=== PATIENT | female | born 1970 | race African-American/Black ===

== ENCOUNTER 2017-08-14 17:55 | Inpatient (IN) ==
[2017-08-14] MEDS ORDERED: ASPIRIN PO STA (18:07)
[2017-08-14 18:20] LABS: MANUAL DIFF NEEDED? NO
[2017-08-14 18:25] LABS: BASO% 0.9 % (0.0-0.8); EOS% 3.8 % (0.0-10.0); HEMATOCRIT 29.9 % (37.0-47.0); HEMOGLOBIN 8.9 g/dL (12.0-16.0); IMM GRAN# 0.02 X1000 (0.0-0.04); IMM GRAN% 0.4 % (0.0-0.5); LYMPH# 1.45 X1000 (1.2-3.4); LYMPH% 27.5 % (20.5-51.1); MCH 24.2 PG (27-31); MCHC 29.8 g/dL (33-37); MCV 81.3 FL (81-99); MONO# 0.33 X1000 (0.11-0.59); MONO% 6.3 % (1.7-9.3); MPV 10.2 FL (7.4-10.4); NEUT% 61.1 % (42.2-75.2); PLT 317 X1000 (130-400); RBC 3.68 XMIL (4.2-5.4)
--- NOTE | 2017-08-14 18:29 | Diag Imaging Result Doc PS360 ---
CHEST-2 VIEWS - 08/14/2017 INDICATION: CP TECHNIQUE: COMPARISON: 09/29/2016 FINDINGS: Lungs are much better expanded. No focal infiltrates, pneumothorax, or pleural effusion. Heart size is moderately enlarged. Pulmonary vascularity is grossly normal. IMPRESSION: Nonspecific cardiomegaly. Electronically signed by Gulshan Mao 08/14/2017 6:27 PM
[2017-08-14 18:37] LABS: INR 0.98; PROTIME 10.3 Seconds (9.2-11.7); PTT 26.4 Seconds (22.0-36.0)
[2017-08-14 18:45] LABS: AGAP 12; ALBUMIN 4.3 g/dL (3.5-5.0); ALKALINE PHOSPHATASE 77 U/L (32-104); BUN 12 mg/dL (8-22); CALCIUM 8.8 mg/dL (8.8-10.2); CHLORIDE 103 mmol/L (98-107); COSMO 277; GOT 14 U/L (10-30); GPT 9 U/L (10-36); MAGNESIUM 2.1 mg/dL (1.5-2.7); SODIUM 139 mmol/L (136-145); TCO2 24 mmol/L (25-35); TOTAL BILIRUBIN 0.36 mg/dL (0.20-1.00); TOTAL PROTEIN 7.9 g/dL (6.3-8.3)
[2017-08-14 18:47] LABS: CK PROFILE 181 U/L (24-173)
[2017-08-14 19:23] LABS: CK-MB 3.57 ng/mL (0.0-5.0)
--- NOTE | 2017-08-14 20:18 | Diag Imaging Result Doc PS360 ---
CT ANGIOGRAM/PULMONARY ARTERIES - 08/14/2017 INDICATION: CHEST PAIN, ELEVATED DDIMER TECHNIQUE: Axial CT images were obtained after administering intravenous contrast. Coronal MIP images were generated. A CT dose reduction protocol was used. COMPARISON: 09/21/2016 FINDINGS: There are a couple of acute appearing pulmonary emboli in right upper and lower lobe segmental arteries. Heart size is normal. Stable COPD changes. No adenopathy. The lungs are clear. Stable thyroid goiter. Upper abdominal images are unremarkable. IMPRESSION: Acute pulmonary emboli in segmental arteries on the right side. A report was immediately called to the patient's provider in the emergency room. Electronically signed by Gulshan Mao 08/14/2017 8:16 PM
[2017-08-14] MEDS: HEPARIN IV ONE ×2 (20:36→21:33)
--- NOTE | 2017-08-14 20:47 | PROVIDER DOCUMENTATION ---
HPI-Chest Pain - General Chief Complaint: Chest Pain Stated Complaint: CP Time Seen by Provider: 08/14/17 19:29 Source: patient Allergies/Adverse Reactions: Patient Allergies Allergy/AdvReac Type Severity Reaction Status Date / Time ciprofloxacin [From Cipro] Allergy Mild ITCHING Verified 08/14/17 20:00 ciprofloxacin HCl * Allergy Mild ITCHING Verified 08/14/17 20:00 [From Cipro] levofloxacin [From Levaquin] Allergy RASH Verified 08/14/17 20:00 Home Medications: Home Medication List Medication Instructions Recorded Confirmed Last Taken Type NK [No Home Medications] 03/19/17 08/14/17 Unknown History - History of Present Illness-CP Nature of Presenting Problem: Pt is a 47 y/o AA female c chief complaint of chest pain and shortness of breath x 3 days. pt states that she normally walks home from work but has been unable to do so for the past 3 days. Today, pt developed chest pain while attempting to walk. In September 2016, pt was dx c bilateral pulmonary emboli. She was admitted as an in-pt in this hospital and then discharged on anti- coagulant. Pt denies any known coagulation disorder. Pt states that she has discontinued taking any anti-coagulants. On arrival at the ER, pt is in minimal distress and is free of chest pain. Review of Systems - Adult - REVIEW OF SYSTEMS - ADULT Constitutional: reports: no symptoms reported. denies: chills, fatique Eyes: reports: no symptoms reported. denies: blurred vision, double vision Ears, Nose, Mouth & Throat: reports: no symptoms reported. denies: ear pain, nose pain, throat pain Cardiovascular: reports: no symptoms reported, chest pain. denies: orthopnea Respiratory: reports: see HPI, shortness of breath. denies: hemoptysis, pleurisy, wheezing Gastrointestinal: reports: no symptoms reported. denies: abdominal pain, nausea Genitourinary: reports: no symptoms reported. denies: dysuria, frequent UTI's Musculoskeletal: reports: no symptoms reported. denies: joint pain, joint swelling Integumentary: reports: no symptoms reported. denies: hives, itching Neurological: reports: no symptoms reported. denies: numbness, paresthesia Psychiatric: reports: no symptoms reported. denies: anxiety, emotional problems Endocrine: reports: no symptoms reported. denies: cold intolerance, heat intolerance Hematologic/Lymphatic: reports: no symptoms reported. denies: blood clots, low blood count Allergic/Immunologic: reports: no symptoms reported. denies: allergic reactions , food allergy All Other Systems: Reviewed and Negative Past History - Adult - PAST MEDICAL HISTORY-ADULT Review of Records: reports: Old Records Reviewed, Nursing Assessment Review, Medications Reviewed, Social history reviewed & non-contributory. Major Childhood Illnesses: reports: denies history Cardiovascular: reports: blood clots (bilat PEs in Sep 2016), other (dependent edema) Respiratory: reports: asthma Gastrointestinal: reports: denies history Obstetrical/Gynecological: reports: denies history Genitourinary: reports: denies history Musculoskeletal: reports: denies history Neurological: reports: denies history Endocrine/Immune: reports: Diabetes Other Conditions: reports: denies history - PRIOR SURGERIES/PROCEDURES Surgical/Procedure History: reports: - PRIOR HOSPITALIZATIONS Prior Hospitalizations: reports: for other non-related - IMMUNIZATION STATUS Childhood Immunizations: See Nurse Assessment Flu Vaccine: See Nurse Assessment - FAMILY HISTORY Family History: other (CHF-father) - SOCIAL HISTORY Smoking: denies Substance Use: none/never Alcohol Use Frequency: never Living Situation: family Physical Exam-General - PHYSICAL EXAM-ADULT Initial Vital Signs Reviewed: Yes - CONSTITUTIONAL General Appearance: alert, no apparent distress - EYES Eyes: PERRL/EOMI, pink conjunctivae - HEAD, EARS, NOSE, MOUTH & THROAT HENMT: normocephalic/atraumatic, moist mucous membranes, normal ENT inspection - NECK Neck: normal inspection - RESPIRATORY Respiratory: chest non-tender, lungs clear, normal breath sounds - CARDIOVASCULAR Cardiovascular: normal peripheral pulses, regular rate, rhythm - GASTROINTESTINAL (ABDOMEN) Abdominal Exam: normal bowel sounds, non tender, soft - LYMPHATIC Lymphatic: no adenopathy - MUSCULOSKELETAL Back Exam: normal inspection, no CVA tenderness, no vertebral tenderness Extremity: normal range of motion, non-tender, normal inspection - SKIN Integumentary: normal color, normal turgor, warm/dry - NEUROLOGIC Neurologic: grossly normal, no motor/sensory deficits - PSYCHIATRIC Psych/Mental Status: normal mood/affect, normal thought content, normal thought process, oriented x 3 Progress - PLAN OF CARE/RESULTS Progress/Plan/Lab Results: Vital Signs - 8 hr 08/14/17 17:59 Temperature 98.5 F Pulse Rate 88 Respiratory Rate 18 Blood Pressure 137/78 O2 Sat by Pulse Oximetry 100 Laboratory Results - last 24 hr 08/14/17 08/14/17 08/14/17 18:09 18:09 18:09 WBC 5.27 RBC 3.68 L Hgb 8.9 L Hct 29.9 L MCV 81.3 MCH 24.2 L MCHC 29.8 L RDW Std Deviation 17.0 H Plt Count 317 MPV 10.2 Immature Gran % (Auto) 0.4 Neut % (Auto) 61.1 Lymph % (Auto) 27.5 Curry % (Auto) 6.3 Eos % (Auto) 3.8 Baso % (Auto) 0.9 H Immature Gran # (Auto) 0.02 Neut # (Auto) 3.22 Lymph # (Auto) 1.45 Curry # (Auto) 0.33 Eos # (Auto) 0.20 Baso # (Auto) 0.05 PT INR PTT (Actin FS) D-Dimer 2.72 H Sodium 139 Potassium 4.0 Chloride 103 Carbon Dioxide 24 L Anion Gap 12 BUN 12 Creatinine 0.7 Estimated GFR/1.73 m2 > 60 BUN/Creatinine Ratio 17 Glucose 88 Calculated Osmolality 277 Calcium 8.8 Magnesium 2.1 Total Bilirubin 0.36 AST 14 ALT 9 L Alkaline Phosphatase 77 Creatine Kinase 181 H Creatine Kinase Index 2.0 CK-MB (CK-2) 3.57 Troponin T Rhe-[id number]-Udktytjotjc Pept Total Protein 7.9 Albumin 4.3 Globulin 3.6 Albumin/Globulin Ratio 1.2 Serum , Qual 08/14/17 08/14/17 08/14/17 18:09 18:09 18:09 WBC RBC Hgb Hct MCV MCH MCHC RDW Std Deviation Plt Count MPV Immature Gran % (Auto) Neut % (Auto) Lymph % (Auto) Curry % (Auto) Eos % (Auto) Baso % (Auto) Immature Gran # (Auto) Neut # (Auto) Lymph # (Auto) Curry # (Auto) Eos # (Auto) Baso # (Auto) PT 10.3 INR 0.98 PTT (Actin FS) 26.4 D-Dimer Sodium Potassium Chloride Carbon Dioxide Anion Gap BUN Creatinine Estimated GFR/1.73 m2 BUN/Creatinine Ratio Glucose Calculated Osmolality Calcium Magnesium Total Bilirubin AST ALT Alkaline Phosphatase Creatine Kinase Creatine Kinase Index CK-MB (CK-2) Troponin T < 0.010 [id number]-P-Jxdzqkpqrjx Pept 304 H Total Protein Albumin Globulin Albumin/Globulin Ratio Serum , Qual 08/14/17 18:09 WBC RBC Hgb Hct MCV MCH MCHC RDW Std Deviation Plt Count MPV Immature Gran % (Auto) Neut % (Auto) Lymph % (Auto) Curry % (Auto) Eos % (Auto) Baso % (Auto) Immature Gran # (Auto) Neut # (Auto) Lymph # (Auto) Curry # (Auto) Eos # (Auto) Baso # (Auto) PT INR PTT (Actin FS) D-Dimer Sodium Potassium Chloride Carbon Dioxide Anion Gap BUN Creatinine Estimated GFR/1.73 m2 BUN/Creatinine Ratio Glucose Calculated Osmolality Calcium Magnesium Total Bilirubin AST ALT Alkaline Phosphatase Creatine Kinase Creatine Kinase Index CK-MB (CK-2) Troponin T Ddp-[id number]-Rilbhrlhxzg Pept Total Protein Albumin Globulin Albumin/Globulin Ratio Serum , Qual NEGATIVE Orders Category Date Time Status CHEST-2 VIEWS [RAD] Stat Exams 08/14/17 18:[address] ANGIOGRM/PULMONARY ARTERIES [CT] Stat Exams 08/14/17 19:29 Completed JOHN W/REFLEX [HH] Stat Lab 08/14/17 21:20 Received CBC WITH ELECTRONIC DIFF [HEME] Stat Lab 08/14/17 18:09 Completed CK PROFILE [SP CHEM] Stat Lab 08/14/17 18:09 Completed COMPREHENSIVE METABOLIC PANEL [CHEM] Stat Lab 08/14/17 18:09 Completed D-DIMER [CHEM] Stat Lab 08/14/17 18:09 Completed FACTOR V [id number] LEIDEN [CLANTON] Stat Lab 08/14/17 21:20 Received MAGNESIUM [CHEM] Stat Lab 08/14/17 18:09 Completed TEST-SERUM [PREG] Stat Lab 08/14/17 18:09 Completed PRO B-NATRIURETIC PEPTIDE Stat Lab 08/14/17 18:09 Completed PROTEIN C ACTIVITY [HH] Stat Lab 08/14/17 21:20 Received PROTEIN S ACTIVITY [HH] Stat Lab 08/14/17 21:20 Received PROTIME WITH INR [COAG] Stat Lab 08/14/17 18:09 Completed PT [id number] GENE MUTATION [CLANTON] Stat Lab 08/14/17 21:20 Received PTT [COAG] Stat Lab 08/14/17 18:09 Completed TROPONIN T Stat Lab 08/14/17 18:09 Completed Aspirin Med 08/14/17 18:07 Discontinued 325 mg PO STAT STA Fondaparinux [Arixtra] Med 08/14/17 21:00 Discontinued 10 mg SUBQ Q24H Fondaparinux [Arixtra] Med 08/14/17 21:30 Active 10 mg SUBQ Q24H Heparin Med 08/14/17 20:24 Discontinued 9,600 unit IV NOW ONE EKG [EKG] Stat Ther 08/14/17 18:07 Ordered Transfer/Admit Order [TRANSFER] Routine Transfer 08/14/17 21:19 Ordered Result Diagrams: 08/14/17 18:09 08/14/17 18:09 - REASSESSMENT Reassessment #1 Time Reassessed: 20:46 (Discussed c Dr. Saldana (ER MD) who reviewed labs and imaging studies. He also recommended a number of coag studies to evaluate a possible coagulopathy. ) - CONSULTS/PCP/HOSPITALIST Notification #1 *Consult/PCP/Hospitalist*: Dr. Cheung (Hospitalist) Time Discussed: 20:46 (Will accept pt and see pt in the ER and write orders. ) Departure - Departure Date of Disposition Decision: 08/14/17 Time of Disposition Decision: 20:47 DIAGNOSIS: Pulmonary embolism Qualifiers: Pulmonary embolism type: other Chronicity: unspecified Acute cor pulmonale presence: without acute cor pulmonale Qualified Code(s): I26.99 - Other pulmonary embolism without acute cor pulmonale Disposition: ADMITTED INPATIENT 09 Certified Medical Emergency: Emergent Condition: Stable - Critical Care Note This patient required my direct & personal management of CC.: No Attestation - Physician/ DARA Attestation Patient care was provided by Advanced Practice Provider:: Yes Advanced Practice Provider:: Kartik Jordan Advanced Practice Provider documentation review:: The Mid-level provider documentation, treatment plan and medical decision making was reviewed by the physician who agrees with all treatment and medical decision making by the MLP. The physician spent face to face time with patient:: No Advanced Practice Provider documentation review:: Supervising physician onsite and consulted in the evaluation and care of this patient. The physician did not have a face to face encounter with the patient.
[2017-08-14] MEDS ORDERED: ARIXTRA SUBQ SCH ×2 (21:00→21:30)
[2017-08-15] MEDS ORDERED: ZOFRAN IV PRN (01:06)
[2017-08-15] MEDS ORDERED: MORPHINE IV PRN (01:06)
[2017-08-15] MEDS: NS 1,000 ML IV SCH ×2 (01:56→15:20)
[2017-08-15] MEDS: RESTORIL PO PRN ×2 (02:32→20:31)
--- NOTE | 2017-08-15 05:14 | EKG Report ---
Test Performed on : 08/14/2017 6:04:09 PM Test Reason : Chest Pain Blood Pressure : / mmHG Vent. Rate : 089 BPM Atrial Rate : 089 BPM P-R Int : 166 ms QRS Dur : 076 ms QT Int : 390 ms P-R-T Axes : 046 016 012 degrees QTc Int : 474 ms Normal sinus rhythm. Normal ECG When compared with ECG of 30-JUL-2015 18:22, Nonspecific T wave abnormality no longer evident in Anterior leads Unconfirmed Result
[2017-08-15 06:14] LABS: MANUAL DIFF NEEDED? NO
[2017-08-15 06:27] LABS: EOS# 0.18 X1000 (0.0-0.7); EOS% 4.4 % (0.0-10.0); HEMOGLOBIN 7.5 g/dL (12.0-16.0); IMM GRAN# 0.01 X1000 (0.0-0.04); IMM GRAN% 0.2 % (0.0-0.5); LYMPH# 1.33 X1000 (1.2-3.4); LYMPH% 32.3 % (20.5-51.1); MCH 23.7 PG (27-31); MCHC 28.8 g/dL (33-37); MONO# 0.32 X1000 (0.11-0.59); MONO% 7.8 % (1.7-9.3); MPV 10.7 FL (7.4-10.4); NEUT% 54.3 % (42.2-75.2); PLT 269 X1000 (130-400); RBC 3.17 XMIL (4.2-5.4)
[2017-08-15 07:04] LABS: IRON SATURATION 8 %; TIBC 296 ug/dL; TOTAL IRON 23 ug/dL (49-151); UNBOUND IRON 273 ug/dL (112-346)
[2017-08-15 07:06] LABS: AGAP 10; BUN 9 mg/dL (8-22); CALCIUM 8.2 mg/dL (8.8-10.2); CHLORIDE 106 mmol/L (98-107); COSMO 276; POTASSIUM 3.4 mmol/L (3.5-5.1); SODIUM 139 mmol/L (136-145); TCO2 23 mmol/L (25-35)
--- NOTE | 2017-08-15 08:47 | EKG Report ---
Test Performed on : 08/15/2017 08:31:39 AM Test Reason : chest pain Blood Pressure : / mmHG Vent. Rate : 080 BPM Atrial Rate : 080 BPM P-R Int : 186 ms QRS Dur : 080 ms QT Int : 418 ms P-R-T Axes : 047 017 017 degrees QTc Int : 482 ms Normal sinus rhythm. Prolonged QT Abnormal ECG When compared with ECG of 14-AUG-2017 18:04, No significant change was found Confirmed by Steve Faria MD ([id number]) on 09/14/2017 6:31:08 PM
[2017-08-15] MEDS: ELIQUIS PO SCH ×2 (09:06→20:31)
[2017-08-15 09:48] LABS: HEMOGLOBIN A1C 4.9 % (4.8-6.0)
[2017-08-15 11:27] LABS: FERRITIN 6 ng/mL (13-150)
--- NOTE | 2017-08-15 15:45 | HISTORY AND PHYSICAL ---
PRIMARY CARE PROVIDER: None CHIEF COMPLAINT: Shortness of breath and chest pain. HISTORY OF PRESENT ILLNESS: Ms. Alvarenga is a 47-year-old female with a past medical history of pulmonary embolism and DVT who came into the ER today after having a couple of days of chest pain and shortness of breath primarily when she walks. Ms. Alvarenga walks to her place of employment. She stated that it became harder and harder to breathe and she started having dizziness today associated with it. The chest pain was midsternal it was mostly with inspiration and expiration. She denied cough, fever, chills, nausea, vomiting, diarrhea, hematochezia, hematemesis, hemoptysis or melena or any type of dysuria. She came into the emergency room where laboratory data was obtained. Her D-dimer was elevated so a CTA was taken which showed multiple small pulmonary embolisms. The patient's BMI is 41.5 so she will be treated with Arixtra 10 mg subcu q.24 hours and will begin bridging to Coumadin tomorrow morning or the next day. The patient was noncompliant with her anticoagulations on her last discharge, I did stress to the patient the need to keep taking her medication. The patient will be admitted to the medical floor inpatient where she will stay likely for 48 hours. PAST MEDICAL HISTORY: 1. Asthma. 2. Borderline diabetes mellitus with no home treatment. 3. DVT/pulmonary embolism poorly compliant with anticoagulations. PREVIOUS SURGICAL HISTORY: . FAMILY HISTORY: CHF in her father, she had an aunt with multiple clots. SOCIAL HISTORY: Lives with her family, works at [employer], denies any tobacco, alcohol or illicit drug use or abuse. ALLERGIES: Cipro and Levaquin. HOME MEDICATIONS: None. REVIEW OF SYSTEMS: Fourteen point review of systems conducted with the patient. Pertinent positives listed above in the HPI. All other systems reviewed and found to be negative. PHYSICAL EXAMINATION: VITAL SIGNS: Temperature 98.5 degrees, pulse 88, respirations 18, blood pressure 137/78, oxygen saturation 100% on room air. GENERAL: Very pleasant 47-year-old female lying in the ER stretcher in no acute distress alert and oriented x3. HEENT: Head is atraumatic, normocephalic. Pupils equal, round, reactive to light. Extraocular eye movement intact. Sclerae is anicteric. Conjunctivae is mildly pale. Oral mucosa is moist. NECK: Supple. No JVD. No thyromegaly. Trachea is midline. No cervical lymphadenopathy. CARDIAC: S1-S2 appreciated. No murmurs, gallops, rubs. LUNGS: Clear to auscultation bilaterally. No rhonchi, wheezes, rales. ABDOMEN: Protuberant, soft, nondistended, nontender, bowel sounds present in all 4 quadrants. Normoactive. No pulsatile mass. No organomegaly. EXTREMITIES: No clubbing or cyanosis. 1+ nonpitting edema bilateral lower extremities midshin to foot, some fluid pocketing noted around bilateral ankles. Denies any calf tenderness on assessment. NEUROLOGIC: Alert and orient x3. Cranial nerves 2-12 grossly intact. DIAGNOSTIC DATA: CTA of chest. Acute pulmonary emboli in the segmental arteries on the right side, chronic COPD changes which was an incident normal on but the patient does have a history of asthma. LABORATORY DATA: WBC 5.27, hemoglobin 8.9, hematocrit 29.9, platelet count 317,000, coags within normal limits. D-dimer 2.72, sodium 139, potassium 4, chloride 103, carbon dioxide 24, BUN 12, creatinine 0.7, glucose 88, CK 181, troponin less than 0.010, proBNP 304. ASSESSMENT PLAN: 1. Acute pulmonary embolism. Will start patient on Arixtra, will draw clotting factors. Patient will begin bridging to Coumadin for discharge home within the next couple of days. 2. Questionable diabetes mellitus type 2. Patient appears to have taken time metformin in the past. She no longer takes any type of medication. Will check hemoglobin A1c and restart medications if necessary. 3. Asthma with chronic obstructive pulmonary disease changes noted on the CT scan aware. Will add albuterol to the patient's profile if needed. 4. Anemia. Check iron indices. Further recommendations per patient clinical course. Dictated by BAN Carrillo for Skye Alford MD cc: BAN Carrillo MD
[2017-08-15 15:49] LABS: HEMATOCRIT 27.3 % (37.0-47.0); HEMOGLOBIN 8.1 g/dL (12.0-16.0); MCH 24.3 PG (27-31); MCHC 29.7 g/dL (33-37); MCV 81.7 FL (81-99); MPV 10.6 FL (7.4-10.4); RBC 3.34 XMIL (4.2-5.4)
--- NOTE | 2017-08-15 17:55 | HISTORY AND PHYSICAL ---
PLEASE DELETE MTDD
--- NOTE | 2017-08-15 18:19 | HISTORY AND PHYSICAL ---
CHIEF COMPLAINT: Shortness of breath. HISTORY OF PRESENT ILLNESS: This is a 47-year-old female who presented to the emergency room complaining of shortness of breath and chest pain. She was found to have an elevated D-dimer and subsequent pulmonary arteriogram revealed acute pulmonary emboli in segmental arteries on the right side for which she was given heparin. Coag workup was drawn and she was admitted for further evaluation. She was found to have a hemoglobin of 8.9 and hematocrit of 29.9. She does have known fibroids and has previously been evaluated by Dr. Cuevas for these. She was admitted in September 2016. At that time, she was found to have a DVT as well as a pulmonary embolus. She was started on Eliquis. She was discharged with prescriptions for Eliquis with a 30 day free card, and she did call and did qualify for free Eliquis. She stated that she did fill the month, the 30 days free, although she did not follow up and get any more refills on Eliquis. PAST MEDICAL HISTORY: Pulmonary embolus. Asthma. Diabetes type 2. Uterine fibroids. Deep venous thrombosis. Anemia secondary to fibroids. PAST SURGICAL HISTORY: . FAMILY HISTORY: Her father had congestive heart failure. SOCIAL HISTORY: She denies alcohol, tobacco, or illicit drug use. ALLERGIES: Cipro which causes itching, Levaquin which causes a rash. HOME MEDICATIONS: None. REVIEW OF SYSTEMS: A 14 point review of systems is discussed with the patient with pertinent positives being shortness of breath, chest pain. She denied palpitations, dizziness, syncope, PND, orthopnea, any cough, fever, chills, any nausea, vomiting, diarrhea, constipation, black or bloody vomitus, black or bloody stools, hematuria dysuria, frequency, urgency. PHYSICAL EXAMINATION: GENERAL: This is a very pleasant 47-year-old female, who is sitting on the bedside in no distress. VITAL SIGNS: Blood pressure is 135/78, with a heart rate of 78, respirations are 18, temperature is 98.9 degrees oral with room air saturations of 100%. HEENT: Head is normocephalic, atraumatic. Pupils equal, round, react to light. EOMs are intact. Sclerae anicteric. Mucous membranes are moist. NECK: Supple with trachea midline. CARDIOVASCULAR: Regular rate and rhythm. S1 and S2 appreciated. PULMONARY: Breath sounds are clear with no increased work of breathing noted. Chest does rise and fall symmetrically with respiration. GASTROINTESTINAL: Abdomen is soft, nontender, nondistended with bowel sounds in all 4 quadrants. BACK: No CVAT. No spine tenderness. MUSCULOSKELETAL: Good range of motion of joints. EXTREMITIES: No clubbing, cyanosis, or edema. Calves are nontender. Pulses are palpable x4. NEUROLOGIC: She is alert and oriented x3. Cranial nerves 2-12 grossly intact. DIAGNOSTICS: WBC is 5.2, with a hemoglobin of 8.9, hematocrit 29.9, and platelets of 317,000. Repeat labs the morning of the 4th: WBC is 4.1, with a hemoglobin of 7.5, hematocrit 26, and platelets of 269,000. D-dimer is 2.72. Sodium is 139, potassium 4, BUN 12, creatinine 0.7, glucose of 88. Cardiac enzymes are negative. Serum is negative. JOHN is negative. CTA pulmonary reveals a right-sided pulmonary embolus. Chest x-ray revealed nonspecific cardiomegaly. ASSESSMENT AND PLAN: 1. Right-sided pulmonary embolus. 2. Known left lower extremity deep venous thrombosis. 3. Diabetes mellitus. 4. Known urine fibroids. 5. Anemia secondary to uterine fibroids. PLAN: She was admitted to the hospital. We will continue telemetry. We will restart Eliquis 5 mg b.i.d. The patient has been given the 30 day free prescription. She did call and she was approved to have free Eliquis. We did have a long discussion on the importance of taking this medication. She did voice understanding. CBC this morning: She was 8.9 and 29.9 hemoglobin and hematocrit on admission. This morning she was 7.5 and 26. She does have a history of uterine fibroids with heavy periods. We will repeat her hemoglobin and hematocrit this afternoon and further care will be directed according to results. Further treatments pending hospital course. Dictated by BAN White for Kolby Santamaria MD cc: BAN White MD
--- NOTE | 2017-08-15 19:27 | PROGRESS NOTE ---
DATE: 08/15/2017 Patient seen and examined. Full note dictated by nurse practitioner. Ms. Alvarenga notes that she was in the hospital recently for pulmonary embolus. She was placed on Eliquis, which she tolerated very well. She got a 1 month prescription and then after much discussion, it appears though she did not fill any further prescriptions, did not follow up anywhere, did not come back to the ER. States she just simply felt one month was enough and did not get her refills. She states that over the past couple of days, she has had increased shortness of breath, chest pain, increased palpitations, increased dyspnea on exertion. PHYSICAL: General: She is awake, alert, oriented. She is in mild respiratory distress. Lungs: Are clear. CV: Regular rate. ASSESSMENT: Patient will be admitted to the hospital. Placed on Lovenox. Restart her Eliquis. consulting services project manager will be consulted to ensure that Eliquis is affordable. Again, discussed with Ms. Alvarenga, the perils of not taking Eliquis, i.e. . Discussed with her the risks of Eliquis, bleeding, potential bleeding, etc. cc: Kolby Santamaria MD
[2017-08-16] MEDS ORDERED: ARIXTRA SUBQ SCH (01:00)
[2017-08-16] MEDS: NS 1,000 ML IV SCH (06:16)
[2017-08-16] MEDS: ELIQUIS PO SCH (08:24)
--- NOTE | 2017-08-16 14:33 | Extremity Venous Study ---
EXAM: Venous U/S Bilateral Legs - 08/15/2017 HISTORY: dvt TECHNIQUE: Bilateral lower extremity Doppler venous ultrasound COMPARISON: 09/20/2016 FINDINGS: The deep veins of the bilateral lower extremities demonstrate flow and compressibility. There are no filling defects identified. IMPRESSION: No evidence of deep venous thrombosis in either lower extremity. Electronically signed by Johann Becerra 08/16/2017 2:31 PM
[2017-08-16 16:40] VITALS: BP 151/85
--- NOTE | 2017-08-17 05:04 | PROGRESS NOTE ---
DATE: 08/16/2017 ADDENDUM REPORT: Patient seen and examined by myself. Full note dictated by nurse practitioner. Patient was admitted to the hospital secondary to pulmonary emboli and what unfortunately appears to be medical noncompliance. It appears that she took 1 month only of Eliquis the last time she was admitted and never went to get any refills. Discussed with patient the perils of not treating her blood clot to include shortness of breath, dyspnea on exertion and ultimately . Discussed with patient that she absolutely needs to follow up with primary care of her choice but she needs to treat her blood clot with medication. cc: Kolby Santamaria MD
--- NOTE | 2017-08-17 16:24 | DISCHARGE SUMMARY ---
ADMISSION DATE: 08/14/2017 DISCHARGE DATE: 08/16/2017 DIAGNOSES: 1. Pulmonary embolus acute. 2. Diabetes mellitus. 3. Known uterine fibroids. 4. Anemia secondary to uterine fibroids. 5. Noncompliance with medications and MD followup. DIAGNOSTICS: 08/14/2017 pulmonary arteriogram revealed acute pulmonary emboli on the right. Bilateral lower extremity Doppler revealed no evidence of DVT in either extremity. HOSPITAL COURSE: Ms. Alvarenga presented to the emergency room complaining of shortness of breath that was consistent with her prior PE. CTA pulmonary revealed a right acute pulmonary embolus for which she was given heparin bolus in the emergency room. She was then started on Eliquis 5 mg b.i.d. She has had no further chest pain or shortness of breath. Her electrolytes were trended and repleted as appropriate. The patient was given an assistance card for Eliquis. She did call and register for 30 days free. She also received the paperwork to send in for 12 months free refills. She completed her part while in the hospital, She was instructed to take this to her PCP to complete at the follow up visit. We did discuss the importance of her continuing her medications as appropriate as an untreated pulmonary embolus could get larger, she could have a pulmonary infarct, [place], stroke or . She does voice understanding. DISCHARGE PHYSICAL EXAMINATION: Discharge Vital Signs: Blood pressure is 150/ 80 with a heart rate of 88, respirations are 18, temperature is 98.2 degrees oral with room air saturations of 98%. Cardiovascular: Regular rate and rhythm. S1, S2 appreciated. Pulmonary : Breath sounds are clear. No increased work of breathing noted. Gastrointestinal: Abdomen is soft, nontender, nondistended with bowel sounds in all 4 quadrants. Extremities: No clubbing, cyanosis, or edema. Calves nontender. Pulses are palpable x4. DISCHARGE FOLLOWUP: She has been given the numbers to [facility] [place] [facility]. She needs to call in the morning to schedule an appointment within the next 1-2 weeks. She was instructed tot darius the paperwork for Eliquis assistance to this visit as it needs to be completed by her PCP. She has been instructed to return to the emergency room for any chest pain, palpitations, shortness of breath, hemoptysis, hematuria, black or bloody stools, increase in chest pain or any questions or concerns that she may have. DISPOSITION: She is being discharged home in stable condition with family members. TIME SPENT: This is a greater than 30 minute discharge. Dictated by BAN White for Kolby Santamaria MD cc: BAN White MD [facility]
--- NOTE | 2017-08-29 05:05 | ED EKG INTERP ---
This chart was entered by Terrie Raymond Scribe, acting as scribe for Adams Saldana MD. EKG Interpretation - EKG Time of EKG reading by physician:: 18:04 EKG Read and Signed by:: Adams Saldana EKG Interpretation (*Must complete 3 of following elements*): Normal Rate: 89 Rhythm: NSR [place]: normal Attestation - Physician/ DARA Attestation Patient care was provided by Advanced Practice Provider:: No The physician spent face to face time with patient:: No Advanced Practice Provider documentation review:: Supervising physician onsite and consulted in the evaluation and care of this patient. The physician did not have a face to face encounter with the patient. This chart was documented by the indicated scribe, (Terrie Raymond Scribe) and accurately reflects the services I performed and decisions made by me, Adams Saldana MD, as attested by the provider's signature.
== END 2017-08-16 17:45 | disposition home or self-care (01) ==
LOC: ED 17:55 → EDIPHOLD 22:45 → SUATTDRO 22:45 → P.MEDSURG 08-15 00:46
PROVIDERS: ATTEND Family Medicine